=== PATIENT | female | born 1995 | race Caucasian/White ===

== ENCOUNTER 2017-04-29 09:35 | Inpatient (IN) | payer SELFPAY ==
[~2017-04-29] VITALS: Ht 152.4 cm; Wt 56.0 kg
[2017-04-29] MEDS ORDERED: PREN-134 PO (09:40)
[2017-04-29] MEDS ORDERED: RINGERS SOLUTION,LACTATED 1,000 ML IV ONE (09:48)
[2017-04-29] MEDS ORDERED: OXYTOCIN 30 UNITS/LACT RINGERS 500 ML IV ONE ×2 (09:49→09:53)
[2017-04-29] MEDS ORDERED: RINGERS SOLUTION,LACTATED 1,000 ML IV SCH (09:53)
[2017-04-29] MEDS ORDERED: FentaNYL CITRATE-PF 100 MCG/2 ML VIAL IVP PRN (10:00)
[2017-04-29] MEDS ORDERED: OXYGEN THERAPY IH SCH (10:00)
[2017-04-29] MEDS ORDERED: METHYLERGONOVINE MALEATE 0.2 MG/ML VIAL IM PRN (10:00)
[2017-04-29] MEDS ORDERED: LIDOCAINE HCL/PF 1% 30 ML VIAL INJ PRN (10:00)
[2017-04-29] MEDS ORDERED: CITRIC ACID/SODIUM CITRATE 30 ML SOLUTION UDCUP PO PRN (10:00)
[2017-04-29] MEDS ORDERED: METOCLOPRAMIDE HCL 5 MG/ML 2 ML VIAL IVP PRN (10:00)
[2017-04-29] MEDS: RINGERS SOLUTION,LACTATED 1,000 ML IV PRN ×2 (10:12→10:22)
[2017-04-29 10:23] LABS: BASOPHILS % (AUTO) 0.4 % (0.0-2.0); EOSINOPHILS % (AUTO) 1.1 % (1.0-6.0); HEMATOCRIT 31.1 % (36-46); HEMOGLOBIN 10.4 g/dL (12.0-16.0); MEAN CORPUSCULAR HEMOGLOBIN 31.2 pg (26.0-34.0); MEAN CORPUSCULAR HGB CONC 33.4 G/dL (31.0-37.0); MEAN CORPUSCULAR VOLUME 93 fL (80-100); MONOCYTES # (AUTO) 0.7 K/uL (0.1-1.0); MONOCYTES % (AUTO) 6.3 % (2.0-9.0); NEUTROPHILS # (AUTO) 8.3 K/uL (1.8-7.7); NEUTROPHILS % (AUTO) 74.2 % (40.0-70.0); RED BLOOD CELL COUNT(AUTO) 3.33 MIL/uL (4.00-5.20); RED CELL DISTRIBUTION WIDTH 14.9 % (11.5-14.5); WHITE BLOOD COUNT (AUTO) 11.2 K/uL (4.5-11.0)
[2017-04-29 11:51] VITALS: BP 92/53
[2017-04-29] MEDS ORDERED: IBUPROFEN 600 MG TABLET PO PRN (12:45)
[2017-04-29] MEDS ORDERED: ACETAMINOPHEN/CODEINE 300-30 MG TABLET PO PRN ×2 (12:45)
[2017-04-29] MEDS ORDERED: BENZOCAINE 20%/MENTHOL 56 GM SPRAY CANISTER TP PRN (12:45)
[2017-04-29] MEDS ORDERED: LANOLIN 7 GM OINTMENT TP PRN (12:45)
[2017-04-29] MEDS ORDERED: GLYCERIN/WITCH HAZEL LEAF 40 PADS JAR TP PRN (12:45)
[2017-04-29] MEDS: MAGNESIUM HYDROXIDE SUSPENSION 30 ML UDCUP PO SCH (20:31)
[2017-04-29] MEDS: SENNA/DOCUSATE SODIUM 187-50 MG TABLET PO SCH (20:32)
[2017-04-30] MEDS: SENNA/DOCUSATE SODIUM 187-50 MG TABLET PO SCH (08:26)
[2017-04-30] MEDS: MAGNESIUM HYDROXIDE SUSPENSION 30 ML UDCUP PO SCH (08:26)
[2017-04-30] MEDS ORDERED: IBUP-2070 PO (11:12)
[2017-04-30] MEDS ORDERED: DSS100 PO (11:13)
[2017-04-30] MEDS ORDERED: FERR-89 PO (11:13)
== END 2017-04-30 11:30 | disposition home or self-care (01) | DRG 775 ==
LOC: OBSVTOIN 09:35 → 4S 09:35
PROVIDERS: ADMIT Obstetrics & Gynecology; ATTEND Obstetrics & Gynecology
PROC: 10E0XZZ Delivery of Products of Conception, External Approach (ICD-10-PCS; principal; 2017-04-29)
PROC: 0KQM0ZZ Repair Perineum Muscle, Open Approach (ICD-10-PCS; 2017-04-29)
PROC: 10907ZC Drainage of Amniotic Fluid, Therapeutic from Products of Conception, Via Natural or Artificial Opening (ICD-10-PCS; 2017-04-29)
DX: O70.1 Second degree perineal laceration during delivery (principal); Z37.0 Single live birth; Z3A.39 39 weeks gestation of pregnancy
CPT/HCPCS: 86850; 86900; 86901; J2590; J7120